=== PATIENT | male | born 1950 | race Asian ===

== ENCOUNTER 2019-05-17 09:08 | Day surgery (SDC) | payer OTHER ==
[~2019-05-17] VITALS: Ht 172.7 cm; Wt 62.1 kg
[2019-05-17] MEDS ORDERED: LIDOCAINE 2% 100 MG/5 ML UJET TP ONE (11:02)
[2019-05-17] MEDS ORDERED: fentaNYL 0.05 MG/ML VIAL ONE (11:02)
[2019-05-17] MEDS ORDERED: MIDAZOLAM 2 MG/2 ML VIAL ONE (11:12)
[2019-05-17] MEDS ORDERED: MIDAZOLAM 2 MG/2 ML VIAL IVP ONE (11:16)
[2019-05-17] MEDS ORDERED: fentaNYL 0.05 MG/ML VIAL IVP ONE (11:18)
== END 2019-05-17 12:30 | disposition home or self-care (01) ==
LOC: MMU 09:08 → MDS 09:08
PROVIDERS: ATTEND Internal Medicine Gastroenterology
DX: Z12.11 Encounter for screening for malignant neoplasm of colon (principal); D12.0 Benign neoplasm of cecum; Z87.891 Personal history of nicotine dependence
CPT/HCPCS: 45385; J2250; J3010